=== PATIENT | female | born 1990 | race Two or more races ===

== ENCOUNTER 2023-09-08 07:22 | Day surgery (SDC) | payer OTHER ==
[2023-09-07 16:31] LABS: HEMATOCRIT 40.4 % (36.0-45.00); HEMOGLOBIN 13.3 g/dL (12.0-15.00); MEAN CELL VOLUME 86.3 fL (80.00-100.00); MEAN CORPUSCULAR HEMOGLOBIN 28.5 pg (27.00-32.0); PLATELET COUNT 274 K/uL (150-450); RED BLOOD COUNT 4.68 M/uL (4.00-6.00); RED CELL DISTRIBUTION WIDTH 13.3 % (11.5-14.5)
[2023-09-07 16:50] LABS: INR 0.98; PARTIAL THROMBOPLASTIN TIME 28.1 SECONDS (22.0-34.0); PROTHROMBIN TIME 10.3 SECONDS (9.0-11.5)
[2023-09-07 16:54] LABS: ALBUMIN 3.3 gm/dL (3.4-5.0); BILIRUBIN TOTAL 0.21 mg/dL (0.3-1.2); CALCIUM 8.7 mg/dL (8.5-10.1); CREATININE SERUM 0.56 mg/dL (0.55-1.02); GFR 123.19; GLOBULINA 3.6 G/DL (2.4-3.5); POTASSIUM 4.1 mEq/L (3.5-5.1); TOTAL PROTEIN 6.9 gm/dL (6.4-8.2)
== END 2023-09-08 17:55 | disposition home or self-care (01) ==
LOC: CIR.AMB 07:22
PROVIDERS: ATTEND Obstetrics & Gynecology
DX: O02.1 Missed abortion (principal); O72.2 Delayed and secondary postpartum hemorrhage; Z20.822 Contact with and (suspected) exposure to COVID-19

== ENCOUNTER 2025-01-17 14:45 | Inpatient (IN) | payer OTHER ==
[~2025-01-17] VITALS: Ht 167.6 cm; Wt 90.7 kg
[2025-02-04] MEDS ORDERED: AMPICILLIN SODIUM 2,000 MG VIAL ONE (10:07)
[2025-02-04 10:42] VITALS: BP 127/82
[2025-02-04] MEDS ORDERED: AMPICILLIN SODIUM 2,000 MG VIAL IV ONE (10:55)
[2025-02-04] MEDS ORDERED: LEVOTHYROXINE25 MCG PO (11:06)
[2025-02-04] MEDS ORDERED: SYNTHROID50 MCG PO (11:09)
[2025-02-04] MEDS ORDERED: PEPCID AC20 MG PO (11:09)
[2025-02-04] MEDS ORDERED: PRENATAL TABLE1 EAC1 PO (11:09)
[2025-02-04 11:11] LABS: HEMATOCRIT 34.5 % (36.0-45.00); HEMOGLOBIN 11.4 g/dL (12.0-15.00); MEAN CELL VOLUME 86.5 fL (80.00-100.00); MEAN CORPUSCULAR HEMOGLOBIN 28.6 pg (27.00-32.0); PLATELET COUNT 206 K/uL (150-450); RED BLOOD COUNT 3.99 M/uL (4.00-6.00); RED CELL DISTRIBUTION WIDTH 14.5 % (11.5-14.5)
[2025-02-04 11:33] LABS: INR < 0.93; PARTIAL THROMBOPLASTIN TIME 27.1 SECONDS (22.0-34.0)
[2025-02-04] MEDS ORDERED: RINGERS SOLUTION,LACTATED 1,000 ML IV SCH (11:45)
[2025-02-04 11:50] LABS: ALBUMIN 2.4 gm/dL (3.4-5.0); BILIRUBIN TOTAL 0.15 mg/dL (0.3-1.2); CALCIUM 8.9 mg/dL (8.5-10.1); CREATININE SERUM 0.59 mg/dL (0.55-1.02); GFR 115.33; GLOBULINA 3.5 G/DL (2.4-3.5); POTASSIUM 4.13 mEq/L (3.5-5.1); TOTAL PROTEIN 5.9 gm/dL (6.4-8.2)
[2025-02-04 15:29] VITALS: BP 142/80
[2025-02-04] MEDS ORDERED: AMPICILLIN SODIUM 1,000 MG VIAL IV SCH (16:00)
[2025-02-04] MEDS ORDERED: MISOPROSTOL 25 MCG TABLET ONE (16:56)
[2025-02-04] MEDS ORDERED: MISOPROSTOL 25 MCG TABLET VAG ONE (17:15)
[2025-02-04 20:33] VITALS: BP 125/81
[2025-02-04] MEDS ORDERED: FAMOtidine 20 MG TABLET PO SCH (21:00)
[2025-02-04 23:42] VITALS: BP 127/64
[2025-02-05 04:31] VITALS: BP 127/78
[2025-02-05] MEDS ORDERED: LEVOTHYROXINE SODIUM 25 MCG TABLET PO SCH (06:00)
[2025-02-05] MEDS ORDERED: OXYTOCIN 20 UNITS/500ML RL PIGGYBAG IV ONE (07:18)
[2025-02-05 07:53] VITALS: BP 129/84
[2025-02-05] MEDS ORDERED: OXYTOCIN 500 ML IV ONE (08:00)
[2025-02-05] MEDS ORDERED: MORPHINE SULFATE 4 MG/ML CARTRIDGE IV PRN ×2 (08:45→12:15)
[2025-02-05] MEDS ORDERED: ERYTHROMYCIN BASE OPHT 1GM EACH TUBE OP ONE (10:39)
[2025-02-05] MEDS ORDERED: OXYTOCIN 10 UNITS/ML VIAL ONE (10:39)
[2025-02-05] MEDS ORDERED: CITRIC ACID/SODIUM CITRATE 30 ML BLIST.PACK PO ONE (10:45)
[2025-02-05] MEDS ORDERED: CEFAZOLIN SODIUM 1,000 MG VIAL IV ONE (10:45)
[2025-02-05] MEDS ORDERED: RINGERS SOLUTION,LACTATED 1,000 ML IV SCH (12:15)
[2025-02-05] MEDS ORDERED: OXYTOCIN 1,000 ML IV ONE (12:15)
[2025-02-05] MEDS ORDERED: MORPHINE SULFATE 4 MG/ML VIAL IV ONE ×2 (13:20→14:05)
[2025-02-05] MEDS ORDERED: KETOROLAC TROMETHAMINE 30 MG VIAL IV SCH (14:00)
[2025-02-05 16:52] VITALS: BP 140/87
[2025-02-05] MEDS ORDERED: GABAPENTIN 300 MG CAPSULE PO SCH (17:00)
[2025-02-05] MEDS ORDERED: SIMETHICONE 125 MG CAPSULE PO SCH (17:00)
[2025-02-05] MEDS ORDERED: ACETAMINOPHEN 500 MG GEL..CAP PO SCH (18:00)
[2025-02-05] MEDS ORDERED: ONDANSETRON HCL 2 MG/ML VIAL IV SCH (18:00)
[2025-02-06 00:17] VITALS: BP 123/77
[2025-02-06 07:00] VITALS: BP 119/73
[2025-02-06 07:24] LABS: HEMATOCRIT 30.6 % (36.0-45.00); HEMOGLOBIN 10.2 g/dL (12.0-15.00); MEAN CELL VOLUME 87.1 fL (80.00-100.00); MEAN CORPUSCULAR HEMOGLOBIN 28.9 pg (27.00-32.0); MEAN CORPUSCULAR HGB CONC 33.2 g/dl (32.0-36.0); PLATELET COUNT 170 K/uL (150-450); RED BLOOD COUNT 3.51 M/uL (4.00-6.00); RED CELL DISTRIBUTION WIDTH 14.6 % (11.5-14.5)
[2025-02-06] MEDS ORDERED: KETOROLAC TROMETHAMINE 10 MG TABLET PO SCH (08:00)
[2025-02-06] MEDS ORDERED: OxyCODONE HCL 5 MG TABLET (ROXICODONE) PO PRN (08:00)
[2025-02-06] MEDS ORDERED: DOCUSATE SODIUM 100MG CAP PO SCH (09:00)
[2025-02-06 11:00] VITALS: BP 119/73
[2025-02-06 15:00] VITALS: BP 138/70
[2025-02-07 03:13] VITALS: BP 140/73
[2025-02-07 08:19] VITALS: BP 136/68
[2025-02-07] MEDS ORDERED: FUROsemide 20 MG TABLET PO SCH (09:00)
[2025-02-07 16:00] VITALS: BP 123/80
[2025-02-08 00:34] VITALS: BP 135/85
[2025-02-08 07:39] VITALS: BP 121/80
== END 2025-02-08 15:04 | disposition home or self-care (01) | DRG 788 ==
LOC: LDR 01-31 14:45 → O/R 02-05 10:54 → OB/GYN 02-05 12:45
PROVIDERS: Obstetrics & Gynecology; ADMIT Obstetrics & Gynecology; ATTEND Obstetrics & Gynecology
PROC: 3E0P7VZ Introduction of Hormone into Female Reproductive, Via Natural or Artificial Opening (ICD-10-PCS; 2025-02-04)
PROC: 4A1HXCZ Monitoring of Products of Conception, Cardiac Rate, External Approach (ICD-10-PCS; 2025-02-04)
PROC: 3E033VJ Introduction of Other Hormone into Peripheral Vein, Percutaneous Approach (ICD-10-PCS; 2025-02-05)
PROC: 10D00Z1 Extraction of Products of Conception, Low, Open Approach (ICD-10-PCS; principal; 2025-02-05 10:00)
DX: O36.8130 Decreased fetal movements, third trimester, not applicable or unspecified (principal); Z3A.40 40 weeks gestation of pregnancy; Z37.0 Single live birth

== ENCOUNTER 2025-01-24 14:30 | Outpatient (CLI) | payer OTHER | END 2025-01-24 16:06 | disposition home or self-care (01) | LOC: NST 14:30 | PROVIDERS: ATTEND Obstetrics & Gynecology | DX: Z34.83 Encounter for supervision of other normal pregnancy, third trimester (principal) ==